=== PATIENT | male | born 1960 | race Caucasian/White ===

== ENCOUNTER → 2020-08-27 09:55 | Outpatient (CLI) | payer MEDICARE, SELFPAY ==
--- NOTE | 2020-08-28 15:19 | PM.TREADMILL ---
Cardiac Stress Test Report Referral & Results Date Patient Seen: 08/28/20 Time Patient Seen: 15:20 Requesting provider: Eben Ontiveros Indication: dyspnea Rest ECG: sinus rhythm Procedure Note: Attempted exercise stress test using Poncho protocol but patient could not keep up with treadmill. Test changed to Lexiscan. After Lexiscan injection had minimal dyspnea, no chest discomfort. No siginificant ST changes on ECG after Lexiscan injection; no ectopy Impression: Normal lexiscan nuclear stress test. Nuclear images pending. Please note: Actual ECG tracings can be found in the PACS system.
--- NOTE | 2020-08-28 17:24 | DI.NM.S_ITS ---
DATE OF SERVICE: 08/27/2020 PROCEDURE PERFORMED: Exercise treadmill, converted to pharmacologic vasodilator stress and rest myocardial perfusion imaging with gating to assess ejection fraction and regional wall motion. INDICATIONS: The patient is a 60-year-old male with an ascending aortic aneurysm and exertional dyspnea. REFERRING PROVIDER: Dr. Eben Ontiveros. CARDIAC STRESS: The patient was initially stressed by treadmill but was unable to keep up with the treadmill and was therefore converted to a pharmacologic stress test after 2 minutes of exercise. He was injected with 0.4 mg of regadenoson and continued to walk at a low level on the treadmill. With this, he had no chest discomfort. He had a normal heart rate and blood pressure response to stress. His resting ECG is normal and there are no ischemic changes with either type of cardiac stress. There were no arrhythmias. Per protocol, 25.8 millicuries of technetium-99m Myoview was injected and the patient was imaged 15 minutes later using a gated SPECT acquisition protocol. On the previous day, he had been injected with 27.7 millicuries of technetium- 99m Myoview and was imaged 30 minutes later, again using a gated SPECT acquisition protocol. FINDINGS: 1. Raw Data: There is fair myocardial tracer uptake although with considerable motion artifact that requires the application of a motion correction algorithm which itself can introduce artifact. The lung/heart ratio is elevated at 0.48, which can be a sign of pulmonary congestion. The TID ratio is at the upper limit of normal at 1.22. 2. Quantitated gated SPECT: Post-stress ejection fraction is estimated at 58% without any focal wall motion abnormality and specifically the inferior wall appears to have normal contractility. The resting ejection fraction is estimated at 58% with a similar contraction pattern. Resting end-diastolic volume is normal at 112 mL. 3. Myocardial perfusion imaging: Post-stress supine images show a fairly normal myocardial perfusion pattern although with a mild perfusion defect in the entire inferior wall from apex to base in a pattern that would be consistent with diaphragmatic attenuation, supported by its complete resolution on the prone images. The resting images show an identical perfusion pattern without any reversibility to the inferior defect. IMPRESSION: 1. Probable normal myocardial perfusion study for ischemia. 2. Fixed mild inferior defect that resolves on prone imaging, most consistent with diaphragmatic attenuation artifact, although previous nontransmural infarction cannot be entirely excluded. There is no evidence for any significant myocardial ischemia. 3. Normal left ventricular systolic function without any focal wall motion abnormality. The lung/heart ratio is mildly elevated, which can be a sign of pulmonary congestion. Clinical correlation is recommended. 4. No angina or ECG evidence of ischemia with a combination of exercise and pharmacologic vasodilator stress. Asher Seo - MARLIN/luis/sb doc#: [id number]/job#: [id number] dd: 08/28/2020 16:42:00 dt: 08/28/2020 17:13:00 DICTATING /COPIES TO: Christopher Santiago MD COPIES MNE: ROSETTE;
== END ==
PROVIDERS: PCP Student in an Organized Health Care Education/Training Program; Referring Provider Student in an Organized Health Care Education/Training Program; Visit Provider Student in an Organized Health Care Education/Training Program
DX: I71.2 Thoracic aortic aneurysm, without rupture (principal); R06.00 Dyspnea, unspecified
CPT/HCPCS: 78452; 93017; A9502; J2785

== ENCOUNTER → 2020-08-28 10:47 | Outpatient (CLI) | payer MEDICARE, SELFPAY ==
--- NOTE | 2020-09-04 11:08 | PM.PFT.1 ---
Pulmonary Function Test Referral & Results Date Patient Seen: 08/28/20 Requesting provider: Eben Ontiveros Results: The spirometry demonstrates an FVC of 3.62 L which is 76% of predicted. The FEV1 was measured at 2.18 L which is 61% of predicted. The FEV1/FVC ratio was 60 which is 79% of predicted. Following the administration of bronchodilator there was 19% improvement in FEV1 and a 74% improvement in FEF 25-75%. Lung volumes show an SVC of 3.69 L which is 77% of predicted. The diffusing capacity was measured at 31.22 which is 96% of predicted. The maximum voluntary ventilation was reduced Interpretation: This study demonstrates mild obstructive lung disease based on reduction FEV1 as well as reduction FEV1/FVC ratio. There is evidence of nearly significant benefit following bronchodilator based on 19% improvement in FEV1 and 74% improvement in FEF 25-75% (small airway flow) as above There may also be mild restrictive lung disease based on slight reduction in SVC Clinical correlation suggested
== END ==
PROVIDERS: PCP Student in an Organized Health Care Education/Training Program; Referring Provider Student in an Organized Health Care Education/Training Program; Visit Provider Student in an Organized Health Care Education/Training Program
DX: R09.02 Hypoxemia (principal); Z87.891 Personal history of nicotine dependence
CPT/HCPCS: 94060; 94726; 94729

== ENCOUNTER → 2023-09-01 12:48 | Outpatient (CLI) | payer MEDICARE, MEDICAID, SELFPAY | PROVIDERS: PCP Student in an Organized Health Care Education/Training Program; Referring Provider Student in an Organized Health Care Education/Training Program; Visit Provider Student in an Organized Health Care Education/Training Program | DX: R09.02 Hypoxemia (principal); Z87.891 Personal history of nicotine dependence; J98.8 Other specified respiratory disorders | CPT/HCPCS: 94060; 94726; 94729 ==